=== PATIENT | female | born 2000 | race Caucasian/White ===

== ENCOUNTER 2021-01-25 10:33 | Emergency (ER) | payer OTHER, SELFPAY ==
--- NOTE | ~2021-01-25 | XR_ITS ---
EXAMINATION: XR foot RT min 3V EXAM DATE: 01/25/2021 10:53 INDICATION: Initial encounter following injury, with pain of the right foot. TECHNIQUE: Right foot dorsoplantar, lateral and oblique projections obtained and reviewed. There is no prior study for comparison. FINDINGS: Right metatarsal bones unremarkable. There are no acute fractures or dislocations identifi ed. There is no subcutaneous gas. The soft tissue is unremarkable. There are no radiopaque foreig n bodies. IMPRESSION: 1. Right foot exam without acute osseous findings. Reviewed, dictated and finalized at location B.
--- NOTE | 2021-01-25 10:40 | ED.LOWEXIN ---
HPI - Extremity Injury (Lower) General Chief Complaint: Extremity Injury, Lower Stated Complaint: right foot injury Time Seen by Provider: 01/25/21 10:40 Source: patient and RN notes reviewed History of Present Illness HPI Narrative: Patient is a 20-year-old female who presents the urgent care with complaints of right foot injury with pain and swelling. Patient states that she fell down 3 steps landing on the concrete basement floor yesterday. Patient is complaining of swelling and pain to the outside of the right foot. Denies of any use of [id number] medication or ice for the pain. Denies of any other injuries from the fall. No other acute complaints. No acute distress noted. Patient aware of the plan of care. Some parts of this dictation were generated by voice recognition software and may contain typographical and/or grammatical inaccuracies. Related Data Home Medications Medication Instructions Recorded Confirmed buspirone 5 mg PO TID 01/25/21 01/25/21 citalopram 20 mg PO DAILY 01/25/21 01/25/21 nortriptyline 20 mg PO BID 01/25/21 01/25/21 Allergies Allergy/AdvReac Type Severity Reaction Status Date / Time No Known Allergies Allergy Verified 01/25/21 10:50 Review of Systems Review of Systems: CONSTITUTIONAL: Denies fever, chills, or sweats. EYES: Denies visual changes, redness, or discharge. ENT: Denies rhinorrhea, congestion, sore throat, or otalgia. CARDIOVASCULAR: Denies chest pain, palpitations, or edema. RESPIRATORY: Denies cough or dyspnea. GASTROINTESTINAL: Denies abdominal pain, nausea, vomiting, or diarrhea. GENITOURINARY: Denies dysuria or hematuria. SKIN: Denies rash or itching. MUSCULOSKELETAL: Reports of right foot pain and swelling due to injury NEUROLOGIC: Denies headache, numbness, or weakness. All other systems reviewed are negative, except as documented in HPI. PMFSH Comments At the time of my signature, I reviewed and agree with the nursing past medical, surgical, social, and family history. There is no relevant family history pertinent to the patient complaint. Exam Narrative: GENERAL: This is a well-nourished, well-developed patient, in no apparent distress. HEAD: normocephalic, atraumatic. EYES: PERRL. Sclera clear/white. Vision is grossly intact. EARS: External ears normal NOSE: External nose normal with no obvious nasal discharge, nares without redness, no rhinorrhea. THROAT: Mucous membranes moist NECK: Neck supple CARDIOVASCULAR: Regular rate and rhythm without murmurs, gallops, or rubs. RESPIRATORY: Clear to auscultation. Breath sounds equal bilaterally. No wheezes, rales, or rhonchi. SKIN: warm, intact with no suspicious lesions or rash, good texture and turgor. NEURO: awake, alert, and oriented to person, place and time. There were no obvious focal neurologic abnormalities. EXTREMITIES: Very mild edema/ecchymosis noted to the lateral aspect of the right foot. Positive strong right pedal pulse with capillary refill less than 2 seconds. Weightbearing difficult due to pain otherwise range of motion within normal limits. Course Vital Signs Vital signs: Vital Signs Temperature 99.2 F 01/25/21 10:45 Pulse Rate 92 01/25/21 10:45 Respiratory Rate 16 01/25/21 10:45 Blood Pressure 120/65 01/25/21 10:45 Pulse Oximetry 100 01/25/21 10:45 Temperature 99.2 F 01/25/21 10:52 Pulse Rate 92 01/25/21 10:52 Respiratory Rate 16 01/25/21 10:52 Blood Pressure 120/65 01/25/21 10:52 Pulse Oximetry 100 01/25/21 10:52 Reviewed MDM - Extremity Injury (Lower) MDM Narrative Medical decision making narrative: Reviewed x-ray results with the patient. She is aware that x-ray was negative for fracture or deformity. Advised the patient to keep the foot elevated with use of ice/Tylenol/ibuprofen for pain relief. Use the Yann wrap as directed. Follow-up with your PCP within 2 to 5 days or for worsening symptoms or failure to improve. Imaging Data Radiologist's
[2021-01-25 10:45] VITALS: BP 120/65; PULSE 92; RESP 16; TEMP 37.3; O2SAT 100
[2021-01-25 10:52] VITALS: BP 120/65; PULSE 92; RESP 16; TEMP 37.3; O2SAT 100
--- NOTE | 2021-01-25 11:15 | PC.NURSE ---
PT TAKEN TO RADIOLOGY IN WHEELCHAIR
== END 2021-01-25 11:05 | disposition home or self-care (01) ==
PROVIDERS: Emergency Provider Nurse Practitioner Family
DX: S99.921A Unspecified injury of right foot, initial encounter (principal); W10.9XXA Fall (on) (from) unspecified stairs and steps, initial encounter; F41.9 Anxiety disorder, unspecified; F32.9 Major depressive disorder, single episode, unspecified
CPT/HCPCS: 73630; 99203; G0463

== ENCOUNTER 2022-04-19 18:49 | Emergency (ER) | payer OTHER, MEDICAID, SELFPAY ==
[2022-04-19 19:16] VITALS: BP 108/56; PULSE 77; RESP 16; TEMP 36.9; O2SAT 100
--- NOTE | 2022-04-19 20:12 | ED.NAVMDI ---
HPI - Nausea/Vomiting/Diarrhea General Chief complaint: Nausea/Vomiting/Diarrhea Stated complaint: Urinary Problem Time Seen by Provider: 04/19/22 20:12 Source: patient Mode of arrival: ambulatory Limitations: no limitations Related Data Home Medications Medication Instructions Recorded Confirmed buspirone 5 mg tablet 5 mg PO TID 01/25/21 04/19/22 citalopram 20 mg tablet 20 mg PO DAILY 01/25/21 04/19/22 nortriptyline 10 mg capsule 20 mg PO BID 01/25/21 04/19/22 Allergies Allergy/AdvReac Type Severity Reaction Status Date / Time No Known Allergies Allergy Verified 04/19/22 19:33 Course Course Level of Care: Express Care Visit Vital Signs Vital signs: Vital Signs Temperature 36.9 C 04/19/22 19:16 Pulse Rate 77 04/19/22 19:16 Respiratory Rate 16 04/19/22 19:16 Blood Pressure 108/56 L 04/19/22 19:16 Pulse Oximetry 100 04/19/22 19:16 Oxygen Delivery Room Air 04/19/22 19:16 Temperature 36.9 C 04/19/22 19:16 Pulse Rate 77 04/19/22 19:16 Respiratory Rate 16 04/19/22 19:16 Blood Pressure 108/56 L 04/19/22 19:16 Pulse Oximetry 100 04/19/22 19:16 Oxygen Delivery Room Air 04/19/22 19:16 Critical Care Time Critical Care Time Critical Care Time: No Discharge Plan Discharge Patient Disposition: Home, Self-Care Condition: Stable Instructions: Antibiotic Form Prescriptions: No Action buspirone 5 mg tablet 5 mg PO TID citalopram 20 mg tablet 20 mg PO DAILY nortriptyline 10 mg capsule 20 mg PO BID Follow-up/Referrals: Harms,Pro Salmon M.D. [Primary Care Provider] - Quality Rudolph Coma Scale Eyes: Open Verbal: Oriented and Alert Motor: Follows Commands Rudolph Coma Total Score: 15
--- NOTE | 2022-04-19 20:36 | ED.NAVMDI ---
HPI - Nausea/Vomiting/Diarrhea General Chief complaint: Nausea/Vomiting/Diarrhea Stated complaint: Urinary Problem Time Seen by Provider: 04/19/22 20:12 Source: patient Mode of arrival: ambulatory Limitations: no limitations History of Present Illness HPI Narrative: 21 year old female presents to [facility] care accompanied with significant other with complaints of nausea and vomiting. Patient reports that she is about 11 weeks with last menses February 03.Patient reports that she has small amount of clear to white vaginal drainage with no itching noted, no vaginal bleeding noted, Patient denies any burning or frequency of urination or any suprapubic or perineal discomfort. patient denies any fevers or other ill symptoms MD elicited complaint: nausea and vomiting Onset (ago): week(s) (increased last 2 weeks) Pain scale (0-10): 0 Treatment prior to arrival: none Related Data Home Medications Medication Instructions Recorded Confirmed buspirone 5 mg tablet 5 mg PO TID 01/25/21 04/19/22 citalopram 20 mg tablet 20 mg PO DAILY 01/25/21 04/19/22 nortriptyline 10 mg capsule 20 mg PO BID 01/25/21 04/19/22 Allergies Allergy/AdvReac Type Severity Reaction Status Date / Time No Known Allergies Allergy Verified 04/19/22 19:33 Review of Systems Review of Systems: CONSTITUTIONAL: Denies fever, chills, or sweats. EYES: Denies visual changes, redness, or discharge. ENT: Denies rhinorrhea, congestion, sore throat, or otalgia. CARDIOVASCULAR: Denies chest pain, palpitations, or edema. RESPIRATORY: Denies cough or dyspnea. GASTROINTESTINAL: Denies abdominal pain, positive for nausea, vomiting, denies diarrhea. GENITOURINARY: Denies dysuria or hematuria. SKIN: Denies rash or itching. MUSCULOSKELETAL: Denies back pain, joint pain, or myalgia. NEUROLOGIC: Denies headache, numbness, or weakness. PSYCHIATRIC: Denies anxiety or depression. All systems reviewed & are unremarkable except as noted in HPI and below PMFSH Past Medical History Medical History (Updated 05/01/22 @ 21:26 by Gracy Mckinley NP) Anxiety and depression Surgical History Surgical History (Updated 05/01/22 @ 21:15 by Gracy Mckinley NP) History of placement of ear tubes History of tonsillectomy Social History Social History (Updated 05/01/22 @ 21:15 by Gracy Mckinley NP) Smoking status: Never smoker Alcohol intake: never Substance use type: does not use Gender identity (if verbalized by the patient): Female Comments At time of signature, agree with nursing past medical, surgical, social and family history. There is no relevant family history pertinent to the presenting complaint Exam Narrative: GENERAL: Well-appearing, well-nourished, and in no acute distress. HEAD: Normocephalic, atraumatic. EYES: PERRLA and EOMI. ENT: Nares clear, no rhinorrhea or epistaxis. Mucous membranes moist.TM's normal with good light reflex, throat pink no tonsils present. NECK: Supple.no lymphadenopathy CHEST: Clear to auscultation. No respiratory distress.SAO2 100% on room air HEART: Regular rate and rhythm. No murmur heard. Normal peripheral pulses. ABDOMEN: Soft, nontender, nondistended, normal active bowel sounds.episodes of nausea and vomiting EXTREMITIES: Normal range of motion. No edema. SKIN: Warm, dry, no rash. NEURO: No focal deficits. Alert and oriented x3. Course Course Emergency Course: Patient is aware of diagnosis, understands and agrees to treatment plan.? Anticipatory guidance given.? Patient agrees to follow-up as directed and is aware of reasons to seek care at the emergency department. Portions of this record may have been created with voice recognition software Level of Care: Express Care Visit Vital Signs Vital signs: Vital Signs Temperature 36.9 C 04/19/22 19:16 Pulse Rate 77 04/19/22 19:16 Respiratory Rate 16 04/19/22 19:16 Blood Pressure 108/56 L 04/19/22 19:16 Pulse Oximetry 100 04/19/22 19:16 Oxygen Del
== END 2022-04-19 20:42 | disposition home or self-care (01) ==
PROVIDERS: Emergency Provider Registered Nurse; PCP Family Medicine
DX: O99.281 Endocrine, nutritional and metabolic diseases complicating pregnancy, first trimester (principal); Z3A.11 11 weeks gestation of pregnancy; E86.0 Dehydration; O21.9 Vomiting of pregnancy, unspecified; F41.9 Anxiety disorder, unspecified; F32.A Depression, unspecified
CPT/HCPCS: 81003; 87086; 99213; G0463